=== PATIENT | female | born 1965 | race Caucasian/White ===

== ENCOUNTER 2021-08-05 21:15 | Inpatient (IN) | payer BC, SELFPAY ==
--- OUTSIDE RECORDS SUMMARY | 2021-08-05 21:21 | XMS REPORT | Clinical Summary ---
:1965 Author Organization [facility] MD Barnhart [facility] Address [address] [place] [id number] Care Team Providers Name Role Phone Brandie Reilly ROZ Unavailable Allergies Not on File Medications Not on file Active Problems Not on file Encounters Date Type Specialty Care Team Description 10/20/2020 Ancillary Procedure Radiology Cancer 10/20/2020 Ancillary Procedure Radiology Cancer after 08/05/2020 Social History Tobacco Use Types Packs/Day Years Used Date Never Assessed Sex Assigned at Date Recorded Not on file Job Start Date Occupation Industry Not on file Not on file Not on file Last Filed Vital Signs Not on file Plan of Treatment Not on file Procedures Procedure Name Priority Date/Time Associated Diagnosis Comme nts OSI MRI ABDOMEN Routine 10/04/2020 2:48 PM Cancer Resul ts for this CDT procedure are i n the results section. OSI CT CHEST Routine 09/26/2020 2:48 PM Cancer Results for this ABDOMEN PELVIS CDT procedure are in the results section. after 08/05/2020 Results OSI MRI ABDOMEN (10/04/2020 2:48 PM CDT) Anatomical Region Laterality Modality Abdomen Other Specimen Narrative Systemgenerated, Documentation - 021 2:48 PM CDT Study acquired at another institution. For comparison only. No MD Joseluis originated interpretation requested or a vailable. OSI CT CHEST ABDOMEN PELVIS (09/26/2020 2:48 PM CDT) Anatomical Region Laterality Modality Chest, Abdomen, Pelvis Other Specimen Narrative Systemgenerated, Documentation - 021 2:48 PM CDT Study acquired at another institution. For comparison only. No MD Joseluis originated interpretation requested or a vailable. after 08/05/2020 Care Teams Medical Coder Relationship Specialty Start Date End Date Ariana Reilly FNP PCP - External Primary Care Family Practice 09/27/20 [address] [facility] Provider [address] [place], [place] [id number]
--- OUTSIDE RECORDS SUMMARY | 2021-08-05 21:21 | XMS REPORT | Continuity of Care Document ---
:1965 Author Organization [facility] t Address [address] [place] [address] Care Team Providers Name Role Phone Brandie Reilly Primary Care Physician SYSTEM, NOT IN Attending Clinician Unavailable LORENA Attending Clinician Unavailable CatMAINE QuintanillaP Attending Clinician AWAIST Attending Clinician Unavailable Nurse, Infusion Attending Clinician Unavailable Lorena BEAR Attending Clinician JOHNNIE Attending Clinician Unavailable Payers Payer Name Policy Type Policy Number Effective Date Expiration Date S ource Problems Condition Condition Condition Status Onset Resolution Last Treating Co mments Source Name Details Category Date Date Treatment Clinician Date Esophageal Esophageal Disease Active 2020-05 U nivers adenocarci adenocarci 2-14 it y of noma noma 00:00: [place] 00 Medical Branch Primary Primary Disease Active Univers adenocarci adenocarci 6-19 it y of noma of noma of 00:00: [place] [facility] 00 Medical third of third of Branch esophagus esophagus due to due to Reyes Reyes esophagus esophagus Obesity Obesity Disease Active Univers (BMI (BMI 2-24 ity of 30-39.9) 30-39.9) 00:00: [place] [address] Medical Branch Right Right Disease Active Univers wrist pain wrist pain 2-22 it y of 00:00: [place] [address] Medical Branch Allergies, Adverse Reactions, Alerts Allergy Allergy Status Severity Reaction(s) Onset Inactive Treating Comm ents Source Name Type Date Date Clinician Penicill Propensi Active Rash Univer s ins ty to 2-19 ity of adverse 00:00: [place] reaction 00 Medical s Branch PENICILL Drug Active Rash Univers INS Class 2-19 ity of 00:00: [place] 00 Medical Branch Social History Social Habit Start Date Stop Date Quantity Comments Source Exposure to Not sure University of SARS-CoV-2 [place] Medical (event) Branch History SDOH University o f Alcohol Frequency [place] M edical Branch History SDKS University o f Alcohol Std [place] [facility] Drinks [facility] [place] [facility] Alcohol intake 2021-06-28 2021-06-28 Ex-drinker University of 00:00:00 00:00:00 (finding) [facility] Tobacco Comment 2021-06-14 2021-06-14 quit in 2008 Univers ity of 00:00:00 00:00:00 [facility] Alcohol Comment 2020-10-24 2020-10-24 Occasional Universit y of 00:00:00 00:00:00 Drinker, [address] [facility] dical of wine every 2 Branch months Tobacco use and 2016-06-26 2016-06-26 Never used Universit y of exposure 00:00:00 00:00:00 [facility] History of 1980-05-05 2008-05-05 Smoker University of tobacco use 00:00:00 00:00:00 [facility] Sex Ass[birth year] At [birth year] MD [place] on 00:00:00 00:00:00 Smoking Status Start Date Stop Date Source Former smoker 2016-06-26 00:00:00 2016-06-26 00:00:00 Universi ty of [facility] Medications Ordered Filled Start Stop Current Ordering Indication Dosage Frequency Signature Comments Components Source Medication Medication Date Date Medication? Clinician (SIG) Name Name metoclopram 2021- Yes [id number] 5mg Take 1 Univers corona HCl 08-03 tablet by ity of (REGLAN) 5 00:00: 04:59 mouth [place] mg tablet 00 :00 before Medical meals for Branch 10 days. barium 2021- No [id number] 50mL 50 mL, U nivers sulfate 08-01 [id number] Oral, ity of (LIQUID E-Z 19:30: 20:03 [place] 60 % 00 :00 dose, On Medi jorge l (w/v) oral Wed Branch suspension 08/01/21 at 50 mL 1430, Routine heparin 2021- No [id number] 500U 500 Units, Univers lock flush 07-31 IV Push, ity of (HEPARIN 16:30: 15:18 ONCE, 1 [place] LOCKFLUSH(P 00 :00 dose, On Medi jorge l ORCINE)(PF) [place] Branch ) 100 07/31/21 at unit/mL 1130, injection Routine 500 Units sucralfate 2021- Yes [id number] 1g Take 1 Univers 1 gram 07-31 tablet by ity of tablet 00:00: 04:59 mouth [place] 00 :00 before Medical meals as Branch needed for Indigestio n or Other (acid reflux) for up to 30 days. sucralfate 2021- Yes [id number] 1g Take 1 Univers 1 gram 07-31 tablet by ity of tablet 00:00: 04:59 mouth [place] 00 :00 before Medical meals as Branch needed for Indigestio n or Other (acid reflux) for up to 30 days. sucralfate 2021- Yes [id number] 1g Take 1 Univers 1 gram 07-31 tablet by ity of tablet 00:00: 04:59 mouth [place] 00 :00 before Medical meals as Branch needed for Indigestio n or Other (acid reflux) for up to 30 days. pantoprazol Yes [id number] 20mg Take 1 Univers e 20 mg EC 2-15 tablet by ity of tablet 00:00: mouth [place] 00 daily. [facility] Branch pantoprazol Yes [id number] 20mg Take 1 Univers e 20 mg EC 2-15 tablet by ity of tablet 00:00: mouth [place] 00 daily. [facility] Branch pantoprazol Yes [id number] 20mg Take 1 Univers e 20 mg EC 2-15 tablet by ity of tablet 00:00: mouth [place] 00 daily. [facility] Branch levothyroxi 2020-05 Yes 112ug Take 112 U nivers ne 112 mcg 2-22 mcg by ity of tablet 20:11: mouth [place] 37 every 24 Medical (twenty-fo Branch ur) hours. levothyroxi 2020-05 Yes 112ug Take 112 U nivers ne 112 mcg 2-22 mcg by ity of tablet 20:11: mouth [place] 37 every 24 Medical (twenty-fo Branch ur) hours. levothyroxi 2020-05 Yes 112ug Take 112 U nivers ne 112 mcg 2-22 mcg by ity of tablet 20:11: mouth [place] 37 every 24 Medical (twenty-fo Branch ur) hours. acetaminoph 2020-05 Yes [id number] 650mg Take 20.25 Univers en 160 mg/5 2-22 mL through it y of mL oral 00:00: enteral [place] liquid 00 tube every Medical 8 (eight) Branch hours. polyethylen 2020-05 Yes [id number] 1{packe Take 1 Univers e glycol 2-22 t} Packet by ity of 3350 00:00: mouth 2 [place] (MIRALAX) 00 (two) Medical 17 gram times Branch powder daily. docusate 2020-05 Yes [id number] 100mg Take 1 U nivers (COLACE) 2-22 capsule by ity o f 100 mg 00:00: mouth [place] capsule 00 daily. Medical Branch simethicone 2020-05 Yes [id number] 80mg Take 1.2 Univers 40 mg/0.6 2-22 mL through ity of mL drops 00:00: enteral [place] 00 tube after Medical meals and Branch at bedtime. acetaminoph 2020-05 Yes [id number] 650mg Take 20.25 Univers en 160 mg/5 2-22 mL through it y of mL oral 00:00: enteral [place] liquid 00 tube every Medical 8 (eight) Branch hours. polyethylen 2020-05 Yes [id number] 1{packe Take 1 Univers e glycol 2-22 t} Packet by ity of 3350 00:00: mouth 2 [place] (MIRALAX) 00 (two) Medical 17 gram times Branch powder daily. docusate 2020-05 Yes [id number] 100mg Take 1 U nivers (COLACE) 2-22 capsule by ity o f 100 mg 00:00: mouth [place] capsule 00 daily. Medical Branch simethicone 2020-05 Yes [id number] 80mg Take 1.2 Univers 40 mg/0.6 2-22 mL through ity of mL drops 00:00: enteral [place] 00 tube after Medical meals and Branch at bedtime. acetaminoph 2020-05 Yes [id number] 650mg Take 20.25 Univers en 160 mg/5 2-22 mL through it y of mL oral 00:00: enteral [place] liquid 00 tube every Medical 8 (eight) Branch hours. polyethylen 2020-05 Yes [id number] 1{packe Take 1 Univers e glycol 2-22 t} Packet by ity of 3350 00:00: mouth 2 [place] (MIRALAX) 00 (two) Medical 17 gram times Branch powder daily. docusate 2020-05 Yes [id number] 100mg Take 1 U nivers (COLACE) 2-22 capsule by ity o f 100 mg 00:00: mouth [place] capsule 00 daily. Medical Branch simethicone 2020-05 Yes [id number] 80mg Take 1.2 Univers 40 mg/0.6 2-22 mL through ity of mL drops 00:00: enteral [place] 00 tube after Medical meals and Branch at bedtime. JEVITY 1.2 Yes Univers JORGE L 0.06 9-08 ity of gram-1.2 00:00: [place] kcal/mL 00 [facility] JEVITY 1.2 Yes Univers JORGE L 0.06 9-08 ity of gram-1.2 00:00: [place] kcal/mL 00 [facility] JEVITY 1.2 Yes Univers JORGE L 0.06 9-08 ity of gram-1.2 00:00: [place] kcal/mL 00 [facility] traZODone Yes 100mg Take 100 Uni vers 100 mg 7-19 mg by ity of tablet 00:00: mouth at [place] 00 bedtime. Medical Branch traZODone Yes 100mg Take 100 Uni vers 100 mg 7-19 mg by ity of tablet 00:00: mouth at [place] 00 bedtime. Medical Branch traZODone Yes 100mg Take 100 Uni vers 100 mg 7-19 mg by ity of tablet 00:00: mouth at [place] 00 bedtime. Medical Branch buPROPion Yes 300mg Take 300 Uni vers XL 300 mg 6-07 mg by ity of 24 hr 00:00: mouth [place] tablet 00 daily. Medical Branch LORazepam Yes .5mg Take 0.5 Univ ers 0.5 mg 6-07 mg by ity of tablet 00:00: mouth 2 [place] 00 (two) Medical times Branch daily as needed. buPROPion Yes 300mg Take 300 Uni vers XL 300 mg 6-07 mg by ity of 24 hr 00:00: mouth [place] tablet 00 daily. Medical Branch LORazepam Yes .5mg Take 0.5 Univ ers 0.5 mg 6-07 mg by ity of tablet 00:00: mouth 2 [place] 00 (two) Medical times Branch daily as needed. buPROPion Yes 300mg Take 300 Uni vers XL 300 mg 6-07 mg by ity of 24 hr 00:00: mouth [place] tablet 00 daily. Medical Branch LORazepam Yes .5mg Take 0.5 Univ ers 0.5 mg 6-07 mg by ity of tablet 00:00: mouth 2 (two) Medical times Branch daily as needed. Immunizations Ordered Filled Immunization Date Status Comments [facility] e Immunization Name Name SARS-COV-2 COVID-19 2021-02-26 Completed Unive rsity of MODERNA VACCINE 00:00:00 [facility] SARS-COV-2 COVID-19 2021-02-26 Completed Unive rsity of MODERNA VACCINE 00:00:00 [facility] SARS-COV-2 COVID-19 2021-02-26 Completed Unive rsity of MODERNA VACCINE 00:00:00 [facility] SARS-COV-2 COVID-19 2020-06-07 Completed Unive rsity of MODERNA VACCINE 00:00:00 [facility] SARS-COV-2 COVID-19 2020-06-07 Completed Unive rsity of MODERNA VACCINE 00:00:00 [facility] SARS-COV-2 COVID-19 2020-06-07 Completed Unive rsity of MODERNA VACCINE 00:00:00 [facility] SARS-COV-2 COVID-19 2020-05-10 Completed Unive rsity of MODERNA VACCINE 00:00:00 [facility] SARS-COV-2 COVID-19 2020-05-10 Completed Unive rsity of MODERNA VACCINE 00:00:00 [facility] SARS-COV-2 COVID-19 2020-05-10 Completed Unive rsity of MODERNA VACCINE 00:00:00 [facility] Vital Signs Vital Name Observation Time Observation Value Comments Source Systolic blood 2021-07-31 15:17:00 110 mm[Hg] Univer sity of pressure [facility] Diastolic blood 2021-07-31 15:17:00 73 mm[Hg] Unive rsity of pressure [facility] Heart rate 2021-07-31 15:17:00 60 /min [facility] Body temperature 2021-07-31 15:17:00 36.78 [facility] 2021-07-31 15:17:00 18 /min [facility] Body height 2021-07-31 15:17:00 154.9 cm [facility] Body weight 2021-07-31 15:17:00 70.2 kg [facility] BMI 2021-07-31 15:17:00 29.24 kg/m2 [facility] Oxygen saturation in 2021-07-31 15:17:00 98 /min [facility] Arterial blood by [facility] Pulse oximetry [place] Procedures Procedure Date / Time Performed Performing Clinician Sourc e FL BARIUM SWALLOW 2021-08-01 19:35:00 Adan Lyn [facility] OSI MRI ABDOMEN 2020-10-04 19:48:00 Ariana Reilly MD [place] OSI CT CHEST ABDOMEN 2020-09-26 19:48:00 Ariana Reilly MD And [place] PELVIS Encounters Start End Encounter Admission Attending Care Care Encounter Source Date/Time Date/Time Type Type Clinicians Facility Department ID 2020-10-16 Outpatient SYSTEM, [facility] [id number] 08:20:40 PROVIDER Kaushalhever saxena 2021-08-30 2021-08-[address] [facility] [id number] Univers 15:20:00 15:20:00 NERY [id number] ity [facility] 2021-08-03 2021-08-03 HARPREET Manriquez [id number] Univers 00:00:00 00:00:00 Management Adan [facility] [id number] ity of CL[id number] [id number] [facility] 185 Branch 2021-08-01 2021-08-[address] [facility] [id number] Univers 13:51:13 23:59:00 ADAN ity of [facility] 2021-08-01 2021-08-01 [facility] Shanika, UNIVERSIT [id number] Univers 13:51:13 23:59:00 Encounter Adan Y HEALTH [id number] ity [id number] [id number] [facility] 807 Branch 2021-07-31 2021-07-31 Nurse Nurse, [facility] Infusion UNIVERSIT [id number]. [id number] Univers 10:00:00 10:30:00 Visit Nery Carrillo Y HEALTH [id number] ity of [id number] [id number] [facility] 053 Branch 2020-10-20 2020-10-20 Outpatient EL MDA MDA [id number] MD 13:13:42 13:13:42 Kaushal o n 2020-10-20 2020-10-20 Outpatient EL MDA MDA [id number] MD 13:13:38 13:13:38 Kaushal o hemanth 2020-10-03 2020-10-03 Outpatient [facility] [id number] [place] 00:00:00 00:00:[address] 2020-10-03 2020-10-03 Outpatient [facility] [id number] [place] 00:00:00 00:00:[address] 2020-10-03 2020-10-03 Outpatient [facility] [id number] [place] 00:00:00 00:00:[address] Results This patient has no known results.
[2021-08-05] MEDS ORDERED: DIPHENHYDRAMINE 50 MG/ML VIAL ONE (21:23)
[2021-08-05] MEDS ORDERED: METHYLPREDNISOLONE 125 MG INJ ONE (21:23)
[2021-08-05] MEDS ORDERED: FAMOTIDINE 20 MG/2 ML VIAL IV ONE (21:24)
[2021-08-05] MEDS ORDERED: NA CHLORIDE 0.9% 1,000 ML ONE (21:25)
[2021-08-05] MEDS ORDERED: EPINEPHrine 1 MG/10 ML SYR ONE (21:26)
[2021-08-05] MEDS ORDERED: EPINEPHRINE/PF 1 MG/ML AMP ONE (21:27)
[2021-08-05] MEDS ORDERED: ALBUTEROL 2.5 MG/3 ML NEB SOL ONE (21:29)
[2021-08-05] MEDS ORDERED: RSI MEDICATION KIT IV ONE ×2 (21:31→21:48)
[2021-08-05] MEDS ORDERED: ONDANSETRON 4 MG/2 ML VIAL ONE ×2 (21:50→22:00)
[2021-08-05] MEDS ORDERED: propofoL 1,000 MG/100 ML VIAL IV ONE (21:57)
[2021-08-05] MEDS ORDERED: LORazepam 2 MG/ML VIAL ONE (22:18)
[2021-08-05 22:43] LABS: Arterial Blood Carboxyhemoglob 0.8 % (0-1.5); Blood Gas Oxyhemoglobin 96.6 % (94-97); Blood O2 Saturation 98.5 % (92-98.5)
[2021-08-05] MEDS ORDERED: FENTANYL CITR 100 MCG/2 ML ONE (23:10)
--- NOTE | 2021-08-05 23:21 | ER ---
Nurse's Notes [facility] Name: Dana Morelos Age: 55 yrs Sex: Female : 1965 Arrival Date: 08/05/2021 Time: 21:17 Bed 2 Private MD: Diagnosis: Anaphylactic reaction due to food;Angioedema Presentation: 08/05 21:15 Chief complaint: Patient states: had uzbek food for dinner around 1900, started sm5 having difficulty breathing and swelling of the tongue. Coronavirus screen: At this time, the client does not indicate any symptoms associated with coronavirus-19. Ebola Screen: No symptoms or risks identified at this time. Onset: The symptoms/episode began/occurred acutely. Anaphylaxis evaluation, angioedema. Initial Sepsis Screen: Does the patient meet any 2 criteria? No. Patient's initial sepsis screen is negative. Does the patient have a suspected source of infection? No. Patient's initial sepsis screen is negative. Risk Assessment: Do you want to hurt yourself or someone else? Patient reports no desire to harm self or others. Onset of symptoms was August 05, 2021. 23:23 Method Of Arrival: Wheelchair [facility] 23:23 Acuity: CHEYANNE 2 sm5 Triage Assessment: 21:15 General: Appears distressed, uncomfortable, Behavior is anxious. Pain: Denies pain. sm5 EENT: tongue swelling. Neuro: No deficits noted. Level of Consciousness is awake, alert, obeys commands, Oriented to person, place, time, situation. Respiratory: Airway is compromised Trachea midline Respiratory effort is labored. ANIMAL HUSBANDMAN: 08/06 00:38 unknown sm5 Historical: - Allergies: 08/05 23:25 No Known Allergies; sm5 - PMHx: 23:25 Esophageal Cancer; sm5 - PSHx: 23:25 Esophagectomy; sm5 - Immunization history:: Adult Immunizations unknown. - Social history:: Smoking status: Patient/guardian denies using tobacco, but has a distant history of tobacco abuse. Screenin:26 Abuse screen: Denies threats or abuse. Denies injuries from another. Nutritional sm5 screening: No deficits noted. Tuberculosis screening: No symptoms or risk factors identified. Fall Risk No fall in past 12 months (0 pts). No secondary diagnosis (0 pts). IV access (20 points). Ambulatory Aid- None/Bed Rest/Nurse Assist (0 pts). Gait- Normal/Bed Rest/Wheelchair (0 pts) Mental Status- Oriented to own ability (0 pts). Total Villa Fall Scale indicates No Risk (0-24 pts). Assessment: 21:15 Respiratory: Trachea midline Respiratory effort is even, labored, Breath sounds with sm5 rhonchi bilaterally. 08/06 04:07 Reassessment: SHAMIR Urena aware of critical troponin 117.3. al4 Vital Signs: 08/05 22:17 Weight 77.11 kg; sm5 22:18 BP 134 / 108; Pulse 86; Resp 18; Pulse Ox 99% on 40% FiO2 ETT vent; sm5 22:30 BP 95 / 66; Pulse 68; Resp 19; Pulse Ox 99% on ETT vent; sm5 22:45 BP 107 / 70; Pulse 66; Resp 16; Pulse Ox 100% on ETT vent; sm5 23:00 BP 112 / 88; Pulse 67; Resp 15; Pulse Ox 100% on R/A; sm5 23:15 BP 90 / 61; Pulse 63; Resp 14; Pulse Ox 100% on ETT vent; sm5 08/06 14:20 ll1 14:20 propofol to 20 mcg/kg/min. Trying to wean off vent per RT. ll1 ED Course: 08/05 21:17 Patient arrived in ED. jj6 21:23 Pérez Cotto MD is Attending Physician. 7 21:25 Inserted saline lock: 22 gauge in right wrist, using aseptic technique. sm5 21:27 Inserted saline lock: 20 gauge in left forearm, using aseptic technique. sm5 21:40 Assisted provider with intubation using 7.0 mm ETT Set up intubation tray. Intubated by lizeth Cotto MD unsuccessful. 21:40 Assisted provider with intubation using 6.0 mm ETT Set up intubation tray. Intubated by twTammy Cotto MD unsuccessful- Anesthesia called, in route 15 min out. 21:56 Kierra Mckinnon, RN is Primary Nurse. ke1 22:25 NGT: inserted 16 Fr. other mouth verified placement of air over stomach, Placement sm5 verified by X-ray, to intermittent suction. 22:40 Chest Single View XRAY In Process Unspecified. EDMS 22:45 Berry cath inserted, using sterile technique, 18 Fr., by wy, balloon inflated, to sm5 gravity drainage, urine specimen collected. returned clear yellow urine. Patient tolerated well. 23:00 Inserted saline lock: 20 gauge in right antecubital area, using aseptic technique. sm5 Blood collected. 23:18 Ramses Mercado is Hospitalizing Provider. [facility] 23:25 Triage completed. sm5 23:29 Arm band placed on right wrist. sm5 23:30 Liver (Hepatic) Function Sent. sm5 23:30 Troponin HS Sent. sm5 23:30 CBC with Diff Sent. sm5 23:30 Basic Metabolic Panel Sent. sm5 23:51 Patient has correct armband on for positive identification. Placed in gown. Bed in low sm5 position. Call light in reach. Side rails up X2. monitoring manager on. Pulse ox on. NIBP on. 08/06 20:40 Patient admitted, IV remains in place. kd3 Administered Medications: 08/05 21:29 Drug: Pepcid (famotidine) 20 mg Route: IVP; Site: right wrist; 4 08/06 00:36 Follow up: Response: No adverse reaction [facility] 08/05 21:30 Drug: EPINEPHrine 1mg/mL 1:1,000 0.3 ml Route: Sub-Q; Site: right upper abdomen; 08/06 00:37 Follow up: Response: No adverse reaction [facility] 08/05 21:30 Drug: SOLU-Medrol (methylPrednisoLONE) 125 mg Route: IVP; Site: right wrist; 4 08/06 00:36 Follow up: Response: No adverse reaction [facility] 08/05 21:30 Drug: Benadryl (diphenhydrAMINE) 25 mg Route: IVP; Site: right wrist; 4 08/06 00:37 Follow up: Response: No adverse reaction [facility] 08/05 21:36 Drug: Etomidate 20 mg Route: IVP; Site: left forearm; 5 08/06 00:34 Follow up: Response: No adverse reaction [facility] 08/05 21:36 Drug: Succinylcholine 125 mg Route: IVP; Site: left forearm; 5 08/06 00:34 Follow up: Response: No adverse reaction [facility] 08/05 21:48 Drug: Zofran (Ondansetron) 4 mg Route: IVP; Site: left forearm; 5 08/06 00:34 Follow up: Response: Nausea unchanged 5 08/05 21:59 Drug: Zofran (Ondansetron) 4 mg Route: IVP; Site: left forearm; 5 08/06 00:33 Follow up: Response: Nausea is decreased [facility] 08/05 22:04 Not Given (Duplicate Order): Etomidate 20 mg IVP once 5 22:04 Drug: Etomidate 8 mg Route: IVP; Site: left forearm; 5 08/06 00:33 Follow up: Response: No adverse reaction 5 08/05 22:05 Drug: Succinylcholine 80 mg Route: IVP; Site: right antecubital; 5 08/06 00:33 Follow up: Response: No adverse reaction [facility] 08/05 22:17 Drug: Ativan (LORazepam) 2 mg Route: IVP; Site: right wrist; 5 08/06 00:33 Follow up: Response: No adverse reaction [facility] 08/05 22:18 Drug: Propofol 5 mcg/kg/min Route: IV; Rate: calculated rate; Site: left forearm; 5 22:18 Follow up: Rate change 30 mcg/kg/min [facility] 22:39 Not Given (Other Intervention Used): Succinylcholine 200 mg IVP once [facility] 23:35 Drug: fentaNYL (PF) 50 mcg Route: IVP; Site: right antecubital; 5 08/06 00:32 Follow up: Response: No adverse reaction [facility] 08/05 23:38 Drug: NS 0.9% 1000 ml Route: IV; Rate: 1000 ml; Site: left forearm; 5 08/06 00:31 Drug: NS 0.9% 1000 ml Route: IV; Rate: 125 ml/hr; Site: left forearm; tw5 00:31 Follow up: IV Status: Infusion continued upon admission tw5 04:22 Not Given (Other Intervention Used): Albuterol 2.5 mg Inhalation once tw5 Outcome: 08/05 23:20 Decision to Hospitalize by Provider. 7 08/06 20:40 Admitted to Med/surg room 208. kd3 Condition: stable Discharge instructions given to patient, Instructed on the need for admit, Demonstrated understanding of instructions. 21:26 Patient left the ED. as6 Signatures: Dispatcher [employer] EDMS Tay Schofield, RN RN jb4 Suzie Arnold RN RN ll1 Pérez Cotto MD MD 7 Irasema Munoz 5 Sarah Vergaraj6 Levi Salguero, RN RN as6 Faye Higginbotham, RN RN kd3 Haseeb Smith Sarah RN RN sm5 Kierra Mckinnon RN RN ke1 Corrections: (The following items were deleted from the chart) 08/05 21:54 21:53 Assisted provider with intubation using 7.0 mm ETT Set up intubation tray. tw5 Intubated by Pérez Cotto MD unsuccessful [facility] 23: 23:23 Chief complaint: Patient states: had uzbek food for dinner around 1900, started sm5 having difficulty breathing and swelling of the tongue [facility] : 23:23 Coronavirus screen: At this time, the client does not indicate any symptoms sm5 associated with coronavirus-19. [facility] 23:23 Ebola Screen: No symptoms or risks identified at this time. sm5 5 : 23:23 Onset: The symptoms/episode began/occurred acutely, 5 [facility] : 23:23 Anaphylaxis evaluation, angioedema [place] [address] : 23:23 Initial Sepsis Screen: Does the patient meet any 2 criteria? No. Patient's 5 initial sepsis screen is negative. Does the patient have a suspected source of infection? No. Patient's initial sepsis screen is negative. [facility] : 23:23 Risk Assessment: Do you want to hurt yourself or someone else? Patient reports no sm5 desire to harm self or others. 5 23:23 Onset of symptoms was August 05, 2021 5 5 23:23 Acuity: CHEYANNE 2 5 5
--- NOTE | 2021-08-05 23:21 | EDPHYS ---
Physician Documentation [facility] Name: Dana Morelos Age: 55 yrs Sex: Female : 1965 Arrival Date: 08/05/2021 Time: 21:17 Bed 2 Private MD: ED Physician Pérez Cotto HPI: 08/05 21:40 This 55 yrs old Female presents to ER via Unassigned with complaints of Allergic mh7 Reaction, Breathing Difficulty. 21:40 The patient presents with difficulty swallowing, itching, rash, shortness of breath, mh7 swelling of the tongue. Onset: The symptoms/episode began/occurred just prior to arrival, today. Associated signs and symptoms: Pertinent negatives: abdominal pain, Altered mental status chest pain, fever, headache, Light headed nausea, Syncope vomiting. Possible causes: Serbian food. At home the patient or guardian has treated the symptoms with nothing. Severity of symptoms: At their worst the symptoms were severe today, in the emergency department the symptoms are unchanged. BENCH CARPENTER: 08/06 00:38 unknown sm5 Historical: - Allergies: 08/05 23:25 No Known Allergies; sm5 - PMHx: 23:25 Esophageal Cancer; sm5 - PSHx: 23:25 Esophagectomy; sm5 - Immunization history:: Adult Immunizations unknown. - Social history:: Smoking status: Patient/guardian denies using tobacco, but has a distant history of tobacco abuse. ROS: 21:40 Constitutional: Negative for fever, chills, and weight loss, Eyes: Negative for injury, mh7 pain, redness, and discharge, Neck: Negative for injury, pain, and swelling, Cardiovascular: Negative for chest pain, palpitations, and edema, Abdomen/GI: Negative for abdominal pain, nausea, vomiting, diarrhea, and constipation, Back: Negative for injury and pain, : Negative for injury, bleeding, discharge, and swelling, MS/Extremity: Negative for injury and deformity, Neuro: Negative for headache, weakness, numbness, tingling, and seizure, Psych: Negative for depression, anxiety, suicide ideation, homicidal ideation, and hallucinations, Endocrine: Negative for neck swelling, polydipsia, polyuria, polyphagia, and marked weight changes, Hematologic/Lymphatic: Negative for swollen nodes, abnormal bleeding, and unusual bruising. Exam: 21:40 Head/Face: Normocephalic, atraumatic. mh7 21:40 Neck: Trachea midline, no thyromegaly or masses palpated, and no cervical lymphadenopathy. Supple, full range of motion without nuchal rigidity, or vertebral point tenderness. No Meningismus. Chest/axilla: Normal chest wall appearance and motion. Nontender with no deformity. No lesions are appreciated. Cardiovascular: Regular rate and rhythm with a normal S1 and S2. No gallops, murmurs, or rubs. Normal PMI, no JVD. No pulse deficits. 21:40 Abdomen/GI: Soft, non-tender, with normal bowel sounds. No distension or tympany. No guarding or rebound. No evidence of tenderness throughout. Back: No spinal tenderness. No costovertebral tenderness. Full range of motion. Skin: Warm, dry with normal turgor. Normal color with no rashes, no lesions, and no evidence of cellulitis. MS/ Extremity: Pulses equal, no cyanosis. Neurovascular intact. Full, normal range of motion. Neuro: Awake and alert, GCS 15, oriented to person, place, time, and situation. Cranial nerves II-XII grossly intact. Motor strength 5/5 in all extremities. Sensory grossly intact. Cerebellar exam normal. Normal gait. Psych: Awake, alert, with orientation to person, place and time. Behavior, mood, and affect are within normal limits. 21:40 Constitutional: The patient appears alert, awake, anxious, in obvious distress, moderately distressed. 21:40 ENT: Mouth: Tongue: is swollen, Posterior pharynx: swelling, that is moderate. 21:40 Respiratory: moderate respiratory distress is noted, Respirations: prolonged exhalation, that is moderate, tachypnea, that is mild, Breath sounds: rhonchi, that are moderate, are heard diffusely. Vital Signs: 22:17 Weight 77.11 kg; sm5 22:18 BP 134 / 108; Pulse 86; Resp 18; Pulse Ox 99% on 40% FiO2 ETT vent; sm5 22:30 BP 95 / 66; Pulse 68; Resp 19; Pulse Ox 99% on ETT vent; sm5 22:45 BP 107 / 70; Pulse 66; Resp 16; Pulse Ox 100% on ETT vent; sm5 23:00 BP 112 / 88; Pulse 67; Resp 15; Pulse Ox 100% on R/A; sm5 23:15 BP 90 / 61; Pulse 63; Resp 14; Pulse Ox 100% on ETT vent; [facility] 08/06 14:20 ll1 14:20 propofol to 20 mcg/kg/min. Trying to wean off vent per RT. ll1 Procedures: 08/05 21:38 Peripheral line: by aseptic technique a peripheral line was placed in the right wrist la1 vein, 22G. 22:30 Intubation: Ventilated with 100% NRB prior to procedure. O2 saturation prior to [facility] procedure was 100 %. Intubated orally using # 3 Monica blade with 7.0 mm ETT. Attempts were not successful. Ventilated with Ambu bag. Cricoid pressure applied during procedure. Patient intubated by anesthesiology via Glidescope with 7.0 ETT.. MDM: 22:30 Data interpreted: Pulse oximetry: on ventilator is 100 %. Interpretation: acceptable. [facility] Counseling: I had a detailed discussion with the patient and/or guardian regarding: the historical points, exam findings, and any diagnostic results supporting the discharge/admit diagnosis, the need for further work-up and treatment in the hospital. Response to treatment: the patient's symptoms have markedly improved after treatment. 23:14 Differential diagnosis: anaphylaxis, angioedema, bronchospasm, Hereditary Angioedema [facility] non IgE mediated drug reaction urticaria. Data reviewed: vital signs, nurses notes, lab test result(s), CBC, electrolytes, radiologic studies, plain films. 23:20 Patient medically screened. [facility] 08/05 21:56 Order name: Basic Metabolic Panel; Complete Time: 00:31 ke1 08/05 21:56 Order name: CBC with Diff; Complete Time: 23:37 1 08/05 21:56 Order name: Troponin HS; Complete Time: 00:31 ke1 08/05 22:11 Order name: Arterial Blood Gas; Complete Time: 23:37 [facility] 08/05 22:28 Order name: Liver (Hepatic) Function; Complete Time: 00:31 [facility] 08/05 23:50 Order name: COVID-19/FLU A+B (Document "Date of Onset" if Symptomatic); Complete Time: tw5 02:07 08/06 03:49 Order name: Comprehensive Metabolic Panel [facility] 08/06 03:49 Order name: Troponin High Sensitivity [facility] 08/06 03:49 Order name: Lipid Profile EDMS 08/06 03:49 Order name: T4 Free EDMS 08/06 03:49 Order name: Magnesium EDMS 08/06 03:49 Order name: Thyroid Stimulating Hormone EDMS 08/06 04:25 Order name: CBC with Automated Diff EDMS 08/05 22:10 Order name: Chest Single View XRAY; Complete Time: 02:07 mh7 08/06 04:26 Order name: CBC Smear Scan EDMS 08/06 05:31 Order name: ABG Arterial Blood Gas EDMS 08/06 05:44 Order name: Urinalysis EDMS 08/06 05:53 Order name: Urine Microscopic Only EDMS 08/06 13:40 Order name: Troponin High Sensitivity EDMS 08/05 21:56 Order name: EKG; Complete Time: 21:57 ke1 08/05 21:56 Order name: Cardiac monitoring; Complete Time: 22:31 ke1 08/05 21:56 Order name: EKG - Nurse/Tech; Complete Time: 23:49 ke1 08/05 21:56 Order name: IV Saline Lock; Complete Time: 22:31 ke1 08/05 21:56 Order name: Labs collected and sent; Complete Time: 23:30 ke1 08/05 21:56 Order name: O2 Per Protocol; Complete Time: 22:31 ke1 08/05 21:56 Order name: O2 Sat Monitoring; Complete Time: 22:31 ke1 Administered Medications: 21:29 Drug: Pepcid (famotidine) 20 mg Route: IVP; Site: right wrist; jb4 08/06 00:36 Follow up: Response: No adverse reaction 5 08/05 21:30 Drug: EPINEPHrine 1mg/mL 1:1,000 0.3 ml Route: Sub-Q; Site: right upper abdomen; sm5 08/06 00:37 Follow up: Response: No adverse reaction 5 08/05 21:30 Drug: SOLU-Medrol (methylPrednisoLONE) 125 mg Route: IVP; Site: right wrist; jb4 08/06 00:36 Follow up: Response: No adverse reaction 5 08/05 21:30 Drug: Benadryl (diphenhydrAMINE) 25 mg Route: IVP; Site: right wrist; jb4 08/06 00:37 Follow up: Response: No adverse reaction 5 08/05 21:36 Drug: Etomidate 20 mg Route: IVP; Site: left forearm; sm5 08/06 00:34 Follow up: Response: No adverse reaction 5 08/05 21:36 Drug: Succinylcholine 125 mg Route: IVP; Site: left forearm; sm5 08/06 00:34 Follow up: Response: No adverse reaction 5 08/05 21:48 Drug: Zofran (Ondansetron) 4 mg Route: IVP; Site: left forearm; sm5 08/06 00:34 Follow up: Response: Nausea unchanged 5 08/05 21:59 Drug: Zofran (Ondansetron) 4 mg Route: IVP; Site: left forearm; sm5 08/06 00:33 Follow up: Response: Nausea is decreased 5 08/05 22:04 Not Given (Duplicate Order): Etomidate 20 mg IVP once 5 22:04 Drug: Etomidate 8 mg Route: IVP; Site: left forearm; 5 08/06 00:33 Follow up: Response: No adverse reaction 5 08/05 22:05 Drug: Succinylcholine 80 mg Route: IVP; Site: right antecubital; 5 08/06 00:33 Follow up: Response: No adverse reaction 5 08/05 22:17 Drug: Ativan (LORazepam) 2 mg Route: IVP; Site: right wrist; 5 08/06 00:33 Follow up: Response: No adverse reaction 5 08/05 22:18 Drug: Propofol 5 mcg/kg/min Route: IV; Rate: calculated rate; Site: left forearm; sm5 22:18 Follow up: Rate change 30 mcg/kg/min 5 22:39 Not Given (Other Intervention Used): Succinylcholine 200 mg IVP once 5 23:35 Drug: fentaNYL (PF) 50 mcg Route: IVP; Site: right antecubital; 5 08/06 00:32 Follow up: Response: No adverse reaction 5 08/05 23:38 Drug: NS 0.9% 1000 ml Route: IV; Rate: 1000 ml; Site: left forearm; 5 08/06 00:31 Drug: NS 0.9% 1000 ml Route: IV; Rate: 125 ml/hr; Site: left forearm; tw5 00:31 Follow up: IV Status: Infusion continued upon admission tw5 04:22 Not Given (Other Intervention Used): Albuterol 2.5 mg Inhalation once tw5 Disposition: 08/05 22:30 Co-signature as Attending Physician, Pérez Cotto MD. 7 Disposition Summary: 08/05/21 23:20 Hospitalization Ordered Hospitalization Status: Inpatient Admission [facility] Provider: Ramses Mercado Condition: Serious mh7 Problem: new mh7 Symptoms: have improved mh7 Bed/Room Type: [place] [address] Location: Telemetry/MedSurg (Inpatient)(08/06/21 20:04) cg Room Assignment: [facility](08/06/21 20:04) cg Diagnosis - Anaphylactic reaction due to food 7 - Angioedema [facility] Forms: - Medication Reconciliation Form 7 - SBAR form 7 Signatures: Dispatcher [employer] EDMS Romel Dorman, ROZ-C [employer]UARANT CREW WORKER-Cla1 Jeannie Cheney, RN RN cg Tay Schofield RN DON jb4 Pérez Cotto MD MD [facility] Irasema Munoz 5 Lizeth Wesley RN RN sm5 Kierra Mckinnon RN RN ke1 Corrections: (The following items were deleted from the chart) 22:28 22:11 HEPATIC FUNCTION+C.LAB.BRZ ordered. EDDC EDDC 22:30 22:27 This 55 yrs old Female presents to ER via Unassigned with complaints of Allergic mh7 Reaction, Breathing Difficulty. mh7 23:37 23:20 Intensive Care Unit mh7 cg 23:37 23:20 mh7 cg 08/06 20:04 08/05 23:37 [facility] ER HOLD cg cg 08/06 20:04 04 23:37 ERHOLD- cg cg
[2021-08-05 23:27] LABS: Absolute Lymphocytes (CBC) 1.4 K/uL (0.7-4.9); Hematocrit 48.8 % (36.0-45.0); Lymphocytes % 12.2 % (15.3-44.8); MPV 8.2 fL (7.6-11.3); RBC Red Blood Cell Count 5.53 M/uL (3.86-4.86)
--- NOTE | 2021-08-06 00:09 | P.HP ---
Certification for Inpatient Patient admitted to: Inpatient With expected LOS: >2 Midnights Patient will require the following post-hospital care: None Practitioner: I am a practitioner with admitting privileges, knowledge of patient current condition, hospital course, and medical plan of care. Services: Services provided to patient in accordance with Admission requirements found in Title 42 Section 412.3 of the Code of Federal Regulations Patient History Date of Service: 08/06/21 Reason for admission: Anaphylaxis History of Present Illness: 55-year-old female with history of esophageal cancer status post esophagectomy presented to the emergency department in respiratory distress possible anaphylactic shock. She was with her sister when they are out eating shortly after eating approximately 1 hour prior to arrival emergency department she began having itching all over her body followed by difficulty breathing. Upon arrival to the ER patient was hypotensive, hypoxic in respiratory distress. Patient was given Solu-Medrol, epinephrine subcu, Benadryl, albuterol neb and was examined by the ED physician who felt as if she was having angioedema and was concerned about her airway. She was intubated for airway protection, was difficult airway required anesthesiologist to intubate. Patient now on ventilator there is to be doing well at this time requiring propofol for for sedation blood pressures in the low 100s this x-ray shows good tube placement lungs appear clear pending radiology interpretation. Will need to admit to the ICU for further management of suspected anaphylaxis/anaphylactic shock. - Past Medical/Surgical History -: Esophageal cancer -: Esophagectomy Psychosocial/ Personal History: Patient lives at home with family - Family History Father -: Cancer - Social History Smoking Status: Never smoker Alcohol use: No CD- Drugs: No Caffeine use: Yes Place of Residence: Home Review of Systems intubated Physical Examination - Physical Exam General: Unresponsive, Other (sedated, on vent) HEENT: Atraumatic, PERRLA, Mucous membr. moist/pink, EOMI, Sclerae nonicteric Neck: Supple, 2+ carotid pulse no bruit, No LAD, Without JVD or thyroid abnormality Respiratory: Clear to auscultation bilaterally, Normal air movement Cardiovascular: Regular rate/rhythm, Normal S1 S2 Capillary refill: <2 Seconds Gastrointestinal: Normal bowel sounds, No tenderness Musculoskeletal: No tenderness Integumentary: No rashes Neurological: Normal tone (sedated, on vent), Other - Studies Laboratory Data (last 24 hrs) 08/05/21 23:04: WBC 11.9 H, Hgb 16.1 H, Hct 48.8 H, Plt Count 261 08/05/21 22:11: Total Bilirubin Cancelled, AST Cancelled, ALT Cancelled, Alkalin e Phosphatase Cancelled Assessment and Plan - Plan Assessment: Anaphylaxis, angioedema History of esophageal cancer status post esophagectomy Plan: Anaphylaxis, angioedema: Patient was intubated in the emergency department regarding concern for impending airway compromise, angioedema. Patient was given subcu epinephrine in addition to IV steroids, Benadryl, Pepcid and nebulizer treatments. Patient currently intubated on ventilator. Neurology to be consulted we will continue with scheduled steroids, as needed nebulized treatments for wheezing, Benadryl as needed. If patient develops hypotension or other signs of anaphylactic shock may require repeat doses of epinephrine or possibly epinephrine drip currently blood pressure is 120/65 even on propofol drip. Admit to ICU work on regarding weaning off the ventilator. Patient denies any previous allergic reactions. Will need EpiPen at discharge and close follow-up. History of esophageal cancer status post esophagectomy: Stable sister reports she is due for follow-up CT later this month gets her care [facility]. She did complete radiation and chemotherapy prior to having esophagectomy. DVT PPX: Lovenox Code status:full Discharge Plan: Home Plan to discharge in: 72 Hours - Advance Directives Does patient have a Living Will: No Does patient have a Durable POA for Healthcare: No - Code Status/Comfort Care Code Status Assessed: Yes (Full code) Time Spent Managing Pts Care (In Minutes): 55
[2021-08-06 00:14] LABS: Albumin 3.2 g/dL (3.4-5.0); Bilirubin Direct 0.1 mg/dL (0-0.2); Bilirubin Total 0.7 mg/dL (0.2-1.0); Potassium 3.7 mmol/L (3.5-5.1); Protein, Total 6.9 g/dL (6.4-8.2)
[2021-08-06 00:16] LABS: Troponin High Sensitivity 59.9 pg/mL (<58.9)
[2021-08-06] MEDS ORDERED: NA CHLORIDE 0.9% 250 ML IV PRN (00:28)
[2021-08-06] MEDS ORDERED: DIPHENHYDRAMINE 50 MG/ML VIAL IV PRN (00:28)
[2021-08-06] MEDS ORDERED: FENTANYL CITR 100 MCG/2 ML IV PRN (00:28)
[2021-08-06] MEDS: NA CHLORIDE 0.9% 1,000 ML IV SCH ×3 (00:28→16:28)
[2021-08-06] MEDS ORDERED: ALBUTEROL 2.5 MG/3 ML NEB SOL NEB PRN (00:28)
[2021-08-06] MEDS ORDERED: ONDANSETRON 4 MG/2 ML VIAL IV PRN (00:28)
[2021-08-06] MEDS: LORazepam 2 MG/ML VIAL IV PRN ×3 (00:34→08:34)
[2021-08-06] MEDS ORDERED: NA CHLORIDE 0.9% 1,000 ML ONE ×3 (01:10→17:54)
[2021-08-06] MEDS ORDERED: propofoL 1,000 MG/100 ML VIAL IV ONE ×3 (01:10→11:19)
[2021-08-06] MEDS: propofoL 1,000 MG/100 ML VIAL IV PRN ×3 (01:14→16:30)
--- NOTE | 2021-08-06 01:28 | RAD REPORT ---
EXAM DESCRIPTION: RAD - Chest Single View - 08/05/2021 10:38 pm CLINICAL HISTORY: post intubation;SOB Chest pain. COMPARISON: MR BREAST BILAT W WO CONTRAST dated 11/19/2013; DIGITAL SCR MAMMO BILAT W CAD dated 2015; Breast Vac Assist BX w/US Guid dated 12/07/2013 FINDINGS: Portable technique limits examination quality. Tip endotracheal tube is at the level of the superior aortic arch. Linear opacities are present left lung base likely atelectasis. The heart is normal in size. No displaced fractures.
[2021-08-06 01:49] LABS: SARS-COV-2 RT PCR NEGATIVE (NEGATIVE)
[2021-08-06] MEDS: METHYLPREDNISOLONE 40 MG INJ IV SCH ×3 (02:18→17:00)
[2021-08-06] MEDS ORDERED: METHYLPREDNISOLONE 40 MG INJ ONE ×3 (02:21→16:05)
[2021-08-06 03:29] LABS: Absolute Lymphocytes (CBC) 0.5 K/uL (0.7-4.9); Hematocrit 41.7 % (36.0-45.0); Lymphocytes % 4.1 % (15.3-44.8); MPV 8.3 fL (7.6-11.3)
[2021-08-06 03:45] LABS: Bilirubin Total 0.4 mg/dL (0.2-1.0); Magnesium 1.8 mg/dL (1.8-2.4); Potassium 3.7 mmol/L (3.5-5.1); Protein, Total 6.5 g/dL (6.4-8.2); Thyroid Stimulating Hormone 3.33 uIU/mL (0.360-3.740)
[2021-08-06 03:49] LABS: Troponin High Sensitivity 117.3 pg/mL (<58.9)
[2021-08-06 04:26] LABS: Blood Morphology Comment NOT SEEN (NOT SEEN); Platelet Estimate ADEQ; White Blood Cell Scan OK (OK)
[2021-08-06] MEDS ORDERED: MAGNESIUM SULFATE 1 gm IVPB 1 GM/100 ML BAG IV ONE ×2 (04:31→04:46)
[2021-08-06] MEDS ORDERED: KCL 20 MEQ/100 mL IVPB 100 ML IV ONE (04:46)
[2021-08-06] MEDS ORDERED: KCL 20 MEQ/100 mL IVPB 20 MEQ/100 ML BAG IV ONE (05:00)
[2021-08-06] MEDS ORDERED: LORazepam 2 MG/ML VIAL ONE ×2 (05:07→07:30)
[2021-08-06 05:30] LABS: Blood Gas Oxyhemoglobin 96.5 % (94-97); Blood O2 Saturation 98.7 % (92-98.5)
[2021-08-06 05:41] LABS: Urine Appearance Clear (Clear); Urine Bilirubin Negative (Negative); Urine Blood Trace-intact (Negative); Urine Color Yellow (Yellow); Urine Glucose Negative (Negative); Urine Protein Negative (Negative); Urine Urobilinogen 0.2 mg/dL (0.2-1.0); Urine pH 5.5 (5.0-7.0)
[2021-08-06 05:43] LABS: Urine Microscopic Reflex ORDER UMIC
[2021-08-06 05:53] LABS: Urine Bacteria <20 /HPF (<20); Urine RBC <5 /HPF (NONE SEEN)
[2021-08-06] MEDS ORDERED: ENOXAPARIN 40 MG/0.4 ML SQ ONE (07:31)
[2021-08-06] MEDS ORDERED: FAMOTIDINE 20 MG/2 ML VIAL IV ONE (07:31)
[2021-08-06] MEDS: ENOXAPARIN 40 MG/0.4 ML SQ SCH (09:00)
[2021-08-06] MEDS: FAMOTIDINE 20 MG/2 ML VIAL IV SCH ×2 (09:00→22:08)
[2021-08-06] MEDS ORDERED: NACHLORIDE 0.45% 1,000 ML IV ONE (09:41)
--- NOTE | 2021-08-06 11:13 | EKG ---
Test Date: 2021-08-05 Test Time: 23:46:42 Registered Safety Engineer: DIONICIO MEASUREMENT RESULTS: Intervals: Rate: 64 PA: 128 QRSD: 82 QT: 412 QTc: 425 [place]: P: 54 PA: 128 QRS: -1 T: 1 INTERPRETIVE STATEMENTS: Normal sinus rhythm Normal ECG No previous ECG available for comparison Electronically Signed On 08-06-21 11:12:05 CDT by Avi Garcia
--- NOTE | 2021-08-06 14:47 | P.PN ---
Subjective Date of Service: 08/06/21 Chief Complaint: Anaphylaxis Patient intubated, sedated and on mechanical ventilation. Stable vitals. Physical Examination - Vital Signs Temperature: 97.6 F Blood Pressure: 99/71 Pulse: 45 Respirations: 14 Pulse Ox (%): 99 - Physical Exam General: Other (Sedated) HEENT: Other (ET tube) Neck: JVD not distended Respiratory: Clear to auscultation bilaterally, Normal air movement Cardiovascular: No edema, Regular rate/rhythm, Normal S1 S2 Gastrointestinal: Normal bowel sounds, Soft and benign, Non-distended, No tenderness Musculoskeletal: No swelling Integumentary: No rashes, No erythema, No cyanosis Neurological: Normal strength at 5/5 x4 extr - Studies Laboratory Data (last 24 hrs) 08/05/21 23:41: Sodium 139, Potassium 3.7, BUN 13, Creatinine 1.12, Glucose 213 H, Total Bilirubin 0.7, AST 37, ALT 34, Alkaline Phosphatase 139 H 08/05/21 23:04: WBC 11.9 H, Hgb 16.1 H, Hct 48.8 H, Plt Count 261 08/05/21 22:11: Total Bilirubin Cancelled, AST Cancelled, ALT Cancelled, Alkaline Phosphatase Cancelled Assessment And Plan - Current Problems (Diagnosis) (1) Anaphylaxis Current Visit: Yes Status: Acute (2) Hypovolemic shock Current Visit: Yes Status: Acute (3) Airway compromise Current Visit: Yes Status: Acute - Plan Continue IV steroid, IV Pepcid, and IV Benadryl as needed. Continue IV fluids. Bronchodilators Vent weaning trial this afternoon. Monitor and correct electrolyte as needed.
[2021-08-06] MEDS ORDERED: ONDANSETRON 4 MG/2 ML VIAL ONE (15:57)
[2021-08-06] MEDS ORDERED: EPINEPHRINE INH 0.5 ML VIAL IH ONE (16:02)
[2021-08-07] MEDS: NA CHLORIDE 0.9% 1,000 ML IV SCH ×3 (00:51→10:17)
[2021-08-07] MEDS: METHYLPREDNISOLONE 40 MG INJ IV SCH ×2 (00:52→10:14)
[2021-08-07 02:58] VITALS: BMI 29.0
[2021-08-07 05:50] LABS: Absolute Lymphocytes (CBC) 0.7 K/uL (0.7-4.9); Hematocrit 34.8 % (36.0-45.0); MPV 8.6 fL (7.6-11.3); RBC Red Blood Cell Count 3.94 M/uL (3.86-4.86)
[2021-08-07 06:07] LABS: ALT/SGPT 51 U/L (12-78); Albumin 2.6 g/dL (3.4-5.0); Alkaline Phosphatase 109 U/L (45-117); BUN Blood Urea Nitrogen 9 mg/dL (7-18); Bicarbonate 22 mmol/L (21-32); Bilirubin Total 0.2 mg/dL (0.2-1.0); Glucose Level 149 mg/dL (74-106); Protein, Total 5.9 g/dL (6.4-8.2); Sodium Level 144 mmol/L (136-145)
[2021-08-07 06:08] LABS: AST/SGOT 41 U/L (15-37); Magnesium 2.3 mg/dL (1.8-2.4); Potassium 4.5 mmol/L (3.5-5.1)
[2021-08-07] MEDS ORDERED: SUCCINYLCHOLINE 20 MG/ML (10 ML) IV ONE ×2 (09:27→09:29)
[2021-08-07] MEDS ORDERED: ETOMIDATE 20 MG/10 ML VIAL IV ONE ×2 (09:27→09:29)
[2021-08-07] MEDS ORDERED: CEPACOL LOZENGES PO PRN (10:07)
[2021-08-07] MEDS: ENOXAPARIN 40 MG/0.4 ML SQ SCH (10:14)
[2021-08-07] MEDS: FAMOTIDINE 20 MG/2 ML VIAL IV SCH (10:14)
--- NOTE | 2021-08-07 10:35 | P.PN ---
Subjective Date of Service: 08/07/21 Chief Complaint: Anaphylaxis Patient successfully extubated yesterday. She is complaining of throat pain today. Physical Examination - Vital Signs Temperature: 97.4 F Blood Pressure: 114/66 Pulse: 50 Respirations: 16 Pulse Ox (%): 100 - Physical Exam General: Alert, Oriented x3, Mild distress (Due to throat pain) HEENT: Mucous membr. moist/pink, Other (Tongue swelling resolved) Neck: Supple Respiratory: Clear to auscultation bilaterally, Normal air movement Cardiovascular: No edema, Regular rate/rhythm, Normal S1 S2 Gastrointestinal: Normal bowel sounds, Soft and benign, No tenderness Musculoskeletal: No swelling Integumentary: No rashes, No erythema, No cyanosis Neurological: Normal speech, Normal strength at 5/5 x4 extr Assessment And Plan - Current Problems (Diagnosis) (1) Anaphylaxis Current Visit: Yes Status: Acute (2) Hypovolemic shock Current Visit: Yes Status: Acute (3) Airway compromise Current Visit: Yes Status: Acute - Plan Anaphylaxis resolved. Greater than 24 hours post anaphylaxis. Discontinue IV steroid, IV Pepcid. IV Benadryl as needed Discontinue IV fluid once patient is able to tolerate p.o. Bronchodilators as needed Resume diet. Premeal sucralfate. Supper call as needed for throat pain. Monitor and correct electrolyte as needed.
[2021-08-07] MEDS ORDERED: PHENOL 1.4% ORAL SPRAY 180ML MM PRN (10:39)
--- NOTE | 2021-08-07 10:43 | P.DS ---
Admission Date: 08/05/21 Discharge Date: 08/07/21 Disposition: ROUTINE DISCHARGE Discharge Condition: FAIR Reason for Admission: Anaphylaxis - Problems (1) Anaphylaxis Current Visit: Yes Status: Acute (2) Hypovolemic shock Current Visit: Yes Status: Acute (3) Airway compromise Current Visit: Yes Status: Acute Brief History of Present Illness: 55-year-old female with history of esophageal cancer status post esophagectomy presented to the emergency department in respiratory distress possible anaphylactic shock. Patient was out eating, took a few bites of a meal with shrimp and started itching all over her body followed by difficulty breathing. Upon arrival to the ER patient was hypotensive, hypoxic in respiratory distress. Patient was given Solu-Medrol, epinephrine subcu, Benadryl, albuterol neb and was examined by the ED physician who felt as if she was having angioedema and was concerned about her airway. She was intubated for airway protection, was difficult airway and required anesthesiologist to intubate. Patient admitted to ICU for further management. Hospital Course: She was treated with IV Solu-Medrol, IV Pepcid, and IV Benadryl. Also treated with supportive measures including IV fluids. Her blood pressure stabilized. Tongue swelling, lip swelling resolved, patient was extubated the following day. She has tolerated room air and was complaining of throat pain which was managed with Chloraseptic spray. She tolerated diet. Anaphylactic shock has resolved, vitals are stable and patient deemed stable for discharge. Vital Signs/Physical Exam: Temp Pulse Resp BP Pulse Ox 97.4 F 50 16 114/66 100 08/07/21 10:35 08/07/21 10:35 08/07/21 10:35 08/07/21 10:35 08/07/21 10:35 General: Alert, In no apparent distress, Oriented x3 HEENT: Mucous membr. moist/pink, Other (Pharynx is clear, no exudate, no swelling, no tongue swelling.) Neck: Supple, JVD not distended Respiratory: Clear to auscultation bilaterally, Normal air movement Cardiovascular: No edema, Regular rate/rhythm, Normal S1 S2 Gastrointestinal: Soft and benign, Non-distended, No tenderness Musculoskeletal: No swelling Integumentary: No rashes Neurological: Normal strength at 5/5 x4 extr Laboratory Data at Discharge: WBC 7.9 K/uL (4.3-10.9) D 08/07/21 05:22 Hgb 11.6 g/dL (12.0-15.0) L 08/07/21 05:22 Hct 34.8 % (36.0-45.0) L D 08/07/21 05:22 Plt Count 136 K/uL (152-406) L D 08/07/21 05:22 Sodium 144 mmol/L (136-145) 08/07/21 05:22 Potassium 4.5 mmol/L (3.5-5.1) 08/07/21 05:22 BUN 9 mg/dL (7-18) 08/07/21 05:22 Creatinine 0.55 mg/dL (0.55-1.3) 08/07/21 05:22 Glucose 149 mg/dL (74-106) H 08/07/21 05:22 Magnesium 2.3 mg/dL (1.8-2.4) D 08/07/21 05:22 Total Bilirubin 0.2 mg/dL (0.2-1.0) 08/07/21 05:22 AST 41 U/L (15-37) H 08/07/21 05:22 ALT 51 U/L (12-78) 08/07/21 05:22 Alkaline Phosphatase 109 U/L (45-117) 08/07/21 05:22 Triglycerides 145 mg/dL (<150) 08/06/21 03:02 Cholesterol 264 mg/dL (<200) H 08/06/21 03:02 HDL Cholesterol 53 mg/dL (40-60) 08/06/21 03:02 Cholesterol/HDL Ratio 4.98 08/06/21 03:02 Home Medications: Docusate [Colace Cap*] 100 mg PO DAILY 08/06/21 LORazepam [Ativan*] 0.5 mg PO BIDP PRN 08/06/21 Sucralfate [Carafate] 1 gm PO TIDWM 08/06/21 Trazodone [Desyrel*] 100 mg PO BEDTIME 08/06/21 bisacodyL [Dulcolax*] 1 tab PO DAILYPRN PRN 08/06/21 buPROPion HCl [Bupropion HCl Sr] 300 mg PO DAILY 08/06/21 Epinephrine [Epipen] 0.3 mg SQ ONCE PRN #3 auto.injct 08/07/21 New Medications: Epinephrine [Epipen] 0.3 mg SQ ONCE PRN #3 auto.injct PRN Reason: Allergies Diet: AHA (Soft diet) Activity: Ad corey Followup: Ariana Reilly NP [Primary Care Provider] - 1-2 Weeks Time spent managing pt's care (in minutes): 33
[2021-08-07] MEDS ORDERED: SUCRALFATE 1GM/10ML UCUP PO SCH (11:30)
[2021-08-07 12:22] VITALS: BP 123/66; TEMP 97.7
[2021-08-07 14:51] VITALS: O2SAT 100
== END 2021-08-07 14:20 | disposition home or self-care (01) | DRG 916 ==
LOC: ER 21:15 → ERHOLD 23:54 → 2ND 08-06 21:05
PROVIDERS: ADMIT Internal Medicine; ATTEND Internal Medicine
PROC: 5A1935Z Respiratory Ventilation, Less than 24 Consecutive Hours (ICD-10-PCS; principal; 2021-08-06)
PROC: 0BH17EZ Insertion of Endotracheal Airway into Trachea, Via Natural or Artificial Opening (ICD-10-PCS; 2021-08-06)
DX: T78.02XA Anaphylactic reaction due to shellfish (crustaceans), initial encounter (principal); Z85.01 Personal history of malignant neoplasm of esophagus; Z20.822 Contact with and (suspected) exposure to COVID-19; Z78.1 Physical restraint status
CPT/HCPCS: 0240U; 31500; 36415; 51702; 71045; 80048; 80053; 80061; 80076; 81003; 81015; 82805; 83735; 84439; 84443; 84484; 85025; 93005; 94002; 94003; 96372; 99291; 99292; J0171; J0330; J1200; J1650; J2405; J2704; J2920; J2930; J3010; J3475; J3480; J7030